=== PATIENT | male | born 1945 | race Caucasian/White ===

== ENCOUNTER → 2020-04-10 13:59 | Outpatient (BNVA) | payer OTHER, SELFPAY | PROVIDERS: PCP Family Medicine; Visit Provider Urology ==

== ENCOUNTER → 2020-10-09 15:06 | Outpatient (BNVA) | payer OTHER, SELFPAY | PROVIDERS: PCP Internal Medicine; Visit Provider Urology ==

== ENCOUNTER → 2021-04-16 11:58 | Outpatient (BNVA) | payer OTHER, SELFPAY | PROVIDERS: PCP Internal Medicine; Visit Provider Urology ==

== ENCOUNTER → 2021-10-15 11:30 | Outpatient (BNVA) | payer OTHER, SELFPAY | PROVIDERS: PCP Internal Medicine; Visit Provider Urology | DX: R97.20 Elevated prostate specific antigen [PSA] (principal); N40.1 Benign prostatic hyperplasia with lower urinary tract symptoms | CPT/HCPCS: 51798 ==

== ENCOUNTER → 2022-04-18 09:03 | Outpatient (BNVA) | payer OTHER, SELFPAY | PROVIDERS: PCP Internal Medicine; Visit Provider Urology | DX: Z13.89 Encounter for screening for other disorder (principal) ==

== ENCOUNTER 2022-10-17 15:08 | Outpatient (AMB) | payer OTHER, SELFPAY ==
--- NOTE | 2022-10-17 15:37 | A.OFFVIS_ITS ---
Intake Intake Visit Reasons: psa follow up Intake Note: Patient is present for Telephone Urology Med: Dutasteride, Tamsulosin Antibiotic Allergy: Cipro Blood Thinner:None [facility] Allergies ciprofloxacin [Cipro] Allergy (Unknown, Verified 10/17/22 15:38) unknown Latex Allergy (Unknown, Uncoded 10/17/22 15:38) unknown Medication List - Last Reconciled 10/17/22 by Buzz Hoang MD dutasteride 0.5 mg PO DAILY 90 days losartan 50 mg PO DAILY lovastatin 10 mg PO DAILY tamsulosin 0.4 mg PO BEDTIME 30 days HPI HPI Comments History of Present Illness Details Xenia GARCIA is a very pleasant male. He is a patient of Dr Phelps. He is seen today for the following urologic conditions. - lower urinary tract symptoms Telemedicine Evaluation 15 min Consultation [facility] Jarad Video attempted Continue slow fall in PSA Effective urinary performance Six month follow-up PVR Lower Urinary Tract Symptoms: Continue therapy on dutasteride with tamsulosin Current visit is for further evaluation of lower urinary tract symptoms, predominate obstructive symptoms - had urinary retention with catheter placed at [facility]. Subsequently seen by a local urologist. Recommendation for prostate procedure. - [place] [facility] [place] 02[place]01 - 140 g prostate, 6 mm area of suspicion low probability target Current treatment includes medication - dutasteride, with tamsulosin and he likes saw [place] Prostate Symptom Score 8/19 , Moderate (9-19), Bother 4. Symptoms include / , incomplete emptying, weak stream, and are progressing. Investigations - prostate biopsy 05/03 90 g, negative PSA 11/01 15, 01/01 6.3, 03/03 3.4, 09/02 3.9, 04/05 4.5, 08/03 3.5, 10/03 4.3, 04/06 3.5 23%, 09/04 4.2, 04/07 5.4, 09/05 4.0 Associated conditions - none Treatment plan continue with current medications [facility] Medical History Benign prostatic hyperplasia with lower urinary tract symptoms Elevated PSA Feeling of incomplete bladder emptying Hyperlipidemia Weak urinary stream Surgical History History of prostate biopsy Review of Systems Const All systems reviewed & are unremarkable except as noted in HPI and below Reports no additional complaints Resp Reports no additional complaints GI Reports no additional complaints Reports as per HPI Musc Reports no additional complaints Physical Exam Telemedicine evaluation Appropriate responses Regular breathing rate and rhythm HEENT Head: Yes normal to inspection Ears: hearing grossly normal bilaterally Eyes General: appearance normal, both eyes and all related structures Neck Neck: Yes normal visual inspection Chest Chest palpation & inspection: normal inspection of the chest Resp Effort & Inspection: normal respiratory effort and able to speak in complete sentences Assessment & Plan Assessment & Plan (1) Elevated PSA: Code(s): R97.20 - Elevated prostate specific antigen [PSA] (2) BPH loc w urin obs/LUTS: Code(s): N40.1 - Benign prostatic hyperplasia with lower urinary tract symptoms Plan Six month follow-up Orders: Orders PSA,Total (Free>4and<10) 6 Months N40.1 - Benign prostatic hyperplasia with lower urinary tract symptoms Patient Instructions: Imaging studies, laboratory and physical exam results were discussed and reviewed in detail. No major barriers to patient understanding were identified. An opportunity to ask questions regarding the treatment plan was provided. All questions were answered. The patient expressed understanding and agreement with the above treatment plan. The patient is aware they should contact our office by phone for worsening of their current condition or the appearance of new urologic symptoms. Compliance is encouraged with any medications and followup testing that is ordered. It is a privilege to participate in the urologic care of your patient. If you have any questions or concerns regarding treatment for the above conditions, or other urologic issues, please do not hesitate to contact me. The office telephone contact is [phone]. This note is constructed using voice recognition software. While every effort has been made to ensure accuracy financial representative errors may have been included. Yours sincerely, Dr Buzz Hoang MD, [employer] [facility] - Urology Providers of Expert, Compassionate Care for the Genitourinary System Telehealth Telehealth Location of provider rendering services: practice address Location of patient: address on file Patient Identification confirmed using: Name, : Yes Telehealth method: video Patient verbally consented to treatment: Yes Patient verbally consented to billing insurance company: Yes Patient informed of any privacy concerns related to visit: Yes Coding Level of Care Code Tele Est Pt Level 3 (21214) Diagnoses Elevated PSA R97.20 BPH loc w urin obs/LUTS N40.1
== END 2022-10-17 16:05 | disposition home or self-care (01) ==
LOC: HO.HUSH 15:08
PROVIDERS: PCP Internal Medicine; Visit Provider Urology
DX: R97.20 Elevated prostate specific antigen [PSA] (principal); N40.1 Benign prostatic hyperplasia with lower urinary tract symptoms
CPT/HCPCS: 99213

== ENCOUNTER → 2022-10-17 15:08 | Outpatient (BNVA) | payer OTHER, SELFPAY | PROVIDERS: PCP Internal Medicine; Visit Provider Urology ==

== ENCOUNTER 2023-04-22 10:47 | Outpatient (AMB) | payer OTHER, SELFPAY ==
--- NOTE | 2023-04-22 10:50 | A.OFFVIS_ITS ---
Intake Intake Visit Reasons: 6M PSA/PVR(set) Intake Note: Patient is Present for Follow Up PSA/PVR Urology Medication: Dutasteride (Previously on Tamsulosin stopped in January Antibiotic Allergies: Cipro Blood Thinners: None PVR: 46 Patient states that he had stopped Tamsulosin in January due to dizziness Currently on dutasteride and is taking a natural supplement that has been effective, patient wants to discuss options just to be on natural supplement Allergies ciprofloxacin [Cipro] Allergy (Unknown, Verified 04/22/23 11:03) unknown Latex Allergy (Unknown, Uncoded 04/22/23 11:03) unknown Medication List - Last Reconciled 04/22/23 by Buzz Hoang MD dutasteride 0.5 mg PO DAILY 90 days losartan 50 mg PO DAILY lovastatin 10 mg PO DAILY HPI HPI Comments History of Present Illness Details Xenia GARCIA is a very pleasant male. He is a patient of Dr Phelps. He is seen today for the following urologic conditions. - lower urinary tract symptoms Six month follow-up PVR 50 cc Had some blood pressure issues and has stopped tamsulosin Continue dutasteride Would recommend repeat MRI in 6 months for his single core question of prostate cancer Lower Urinary Tract Symptoms: Continue therapy on dutasteride with tamsulosin Current visit is for further evaluation of lower urinary tract symptoms, predominate obstructive symptoms - had urinary retention with catheter placed at [facility]. Subsequently seen by a local urologist. Recommendation for prostate procedure. - has seen urologist at [facility] [place]. MRI 02/01 - 140 g prostate, 6 mm area of suspicion low probability target Current treatment includes medication - dutasteride, with tamsulosin and he likes saw [place] Prostate Symptom Score 8/ , Moderate (9-19), Bother 4. Symptoms include / , incomplete emptying, weak stream, and are progressing. Investigations - prostate biopsy 05/03 90 g, single core HALEY PSA 11/01 15, 01/01 6.3, 03/03 3.4, 09/02 3.9, 04/05 4.5, 08/03 3.5, 10/03 4.3, 04/06 3.5 23%, 09/04 4.2, 04/07 5.4, 09/05 4.0, 04/08 5.5 18% Associated conditions - none Treatment plan continue with current medications [facility] Medical History Benign prostatic hyperplasia with lower urinary tract symptoms Elevated PSA Feeling of incomplete bladder emptying Hyperlipidemia Weak urinary stream Surgical History History of prostate biopsy Review of Systems Const Denies chills and Denies fever(s) Card Reports no additional complaints and Denies syncope Resp Denies cough GI Denies abdominal pain and Denies heartburn Reports as per HPI and Denies change in libido Neuro Denies syncope Psych Denies change in libido Endo Denies change in libido Physical Exam Const General: cooperative, healthy appearing, comfortable and no acute distress Orientation/consciousness: patient oriented x3 HEENT Face and sinus: Yes normal facial exam Mouth: moist mucous membranes Neck Neck: Yes normal visual inspection, Yes full ROM and Yes trachea midline Chest Chest palpation & inspection: normal inspection of the chest Resp Effort & Inspection: normal respiratory effort, able to speak in complete sentences and no respiratory distress GI Inspection: Yes normal to inspection Back/Spine/Pelvis Cervical Spine: normal cervical lordosis Thoracic/Lumbar Spine: thoracic and lumbar spine normal to inspection Skin General skin exam: no rashes or lesions noted Neuro General: patient oriented x3, gait normal, tone normal and moves all extremities Extrem General: Yes normal to inspection and Yes capillary refill normal Office Procedures Post Void Residual Post Residual Void Post Void Residual (PVR): 46 [id number] Void Residual by ultrasound Assessment & Plan Assessment & Plan (1) Prostate cancer: Code(s): C61 - Malignant neoplasm of prostate Plan Six-month follow-up MRI with lab work Orders: Orders AMB Post Void Residual by ultrasound Today N40.1 - Benign prostatic hyperplasia with lower urinary tract symptoms Prostate Specific Antigen 6 Months C61 - Malignant neoplasm of prostate Blood Urea Nitrogen 6 Months C61 - Malignant neoplasm of prostate MR pelvis wo/w con 6 Months C61 - Malignant neoplasm of prostate Creatinine 6 Months C61 - Malignant neoplasm of prostate Patient Instructions: Imaging studies, laboratory and physical exam results were discussed and reviewed in detail. No major barriers to patient understanding were identified. An opportunity to ask questions regarding the treatment plan was provided. All questions were answered. The patient expressed understanding and agreement with the above treatment plan. The patient is aware they should contact our office by phone for worsening of their current condition or the appearance of new urologic symptoms. Compliance is encouraged with any medications and followup testing that is ordered. It is a privilege to participate in the urologic care of your patient. If you have any questions or concerns regarding treatment for the above conditions, or other urologic issues, please do not hesitate to contact me. The office telephone contact is [phone]. This note is constructed using voice recognition software. While every effort has been made to ensure accuracy drilling assistant errors may have been included. Yours sincerely, Dr Buzz Hoang MD, [employer] [facility] - Urology Providers of Expert, Compassionate Care for the Genitourinary System Coding Level of Care Code Est Pt Level 3 (14965) Diagnoses Prostate cancer C61 CPT Codes Post Residual Void - PVR CPT Code: 64329-Jaiz Void Residual by ultrasound ([id number])
== END 2023-04-22 11:36 | disposition home or self-care (01) ==
PROVIDERS: PCP Internal Medicine; Visit Provider Urology
DX: C61 Malignant neoplasm of prostate (principal)
CPT/HCPCS: 99213

== ENCOUNTER → 2023-04-22 10:47 | Outpatient (BNVA) | payer OTHER, SELFPAY | PROVIDERS: PCP Internal Medicine; Visit Provider Urology | DX: C61 Malignant neoplasm of prostate (principal) | CPT/HCPCS: 51798 ==

== ENCOUNTER 2023-10-27 08:13 | Outpatient (AMB) | payer OTHER, SELFPAY ==
--- NOTE | 2023-10-27 08:13 | MHC.OFFVIS ---
Intake Visit Reasons: 6M Follow Up-MRI/PSA(SET) Intake Note: Patient presents to the office today as a telehealth visit for a 6 month follow up MRI/PSA Urology Med: Dutasteride, Antibiotic Allergy: Cipro Blood Thinner:None Allergies ciprofloxacin [Cipro] Allergy (Unknown, Verified 10/27/23 08:13) unknown Latex Allergy (Unknown, Uncoded 10/27/23 08:13) unknown Medication List - Last Reconciled 10/27/23 by Buzz Hoang MD dutasteride 0.5 mg PO DAILY 90 days losartan 50 mg PO DAILY lovastatin 10 mg PO DAILY HPI Comments Details: Xenia GARCIA is a very pleasant male. He is a patient of Dr Phelps. He is seen today for the following urologic conditions. - lower urinary tract symptoms - suspicious prostate MRI - single core HALEY Telemedicine Evaluation 15 min Consultation [facility] [facility] Jarad Video Continue dutasteride - cut back to M, W, F [facility] - 10/06 MRI 130gm, no suspicious lesions Continue surveillance Lower Urinary Tract Symptoms: Continue therapy on dutasteride with tamsulosin Current visit is for further evaluation of lower urinary tract symptoms, predominate obstructive symptoms - had urinary retention with catheter placed at [facility]. Subsequently seen by a local urologist. Recommendation for prostate procedure. - has seen urologist at [facility] [place]. MRI 02/01 - 140 g prostate, 6 mm area of suspicion low probability target Current treatment includes medication - dutasteride, with tamsulosin and he likes saw [place] Prostate Symptom Score 8/19 , Moderate (9-19), Bother 4. Symptoms include 8/ , incomplete emptying, weak stream, and are progressing. Investigations - prostate biopsy 05/03 90 g, single core HALEY PSA 11/01 15, 01/01 6.3, 03/03 3.4, 09/02 3.9, 04/05 4.5, 08/03 3.5, 10/03 4.3, 04/06 3.5 23%, 09/04 4.2, 04/07 5.4, 09/05 4.0, 04/08 5.5 18%, 09/06 6.3 Associated conditions - none Treatment plan continue with current medications [facility] Medical History Hyperlipidemia Weak urinary stream Elevated PSA Benign prostatic hyperplasia with lower urinary tract symptoms Feeling of incomplete bladder emptying Surgical History History of prostate biopsy Review of Systems Const All systems reviewed & are unremarkable except as noted in HPI and below Reports no additional complaints Resp Reports no additional complaints GI Reports no additional complaints Reports as per HPI Musc Reports no additional complaints Physical Exam Telemedicine evaluation Appropriate responses Regular breathing rate and rhythm HEENT Head: Yes normal to inspection Ears: hearing grossly normal bilaterally Eyes General: appearance normal, both eyes and all related structures Neck Neck: Yes normal visual inspection Chest Chest palpation & inspection: normal inspection of the chest Resp Effort & Inspection: normal respiratory effort and able to speak in complete sentences Telehealth Telehealth Telehealth Platform: [employer] Location of provider rendering services: practice address Location of patient: address on file Patient Identification confirmed using: Name, : Yes Telehealth method: video Patient verbally consented to treatment: Yes Patient verbally consented to billing insurance company: Yes Patient informed of any privacy concerns related to visit: Yes Minutes spent on Phone/Video with Pt.: 15 Assessment & Plan Assessment & Plan (1) Prostate cancer: Code(s): C61 - Malignant neoplasm of prostate Category: Medical (2) Elevated PSA: Code(s): R97.20 - Elevated prostate specific antigen [PSA] Category: Medical (3) BPH loc w urin obs/LUTS: Code(s): N40.1 - Benign prostatic hyperplasia with lower urinary tract symptoms Category: Medical Plan Six-month follow-up Orders: Orders PSA,Total (Free>4and<10) 6 Months C61 - Malignant neoplasm of prostate Patient Instructions: Imaging studies, laboratory and physical exam results were discussed and reviewed in detail. No major barriers to patient understanding were identified. An opportunity to ask questions regarding the treatment plan was provided. All questions were answered. The patient expressed understanding and agreement with the above treatment plan. The patient is aware they should contact our office by phone for worsening of their current condition or the appearance of new urologic symptoms. Compliance is encouraged with any medications and followup testing that is ordered. It is a privilege to participate in the urologic care of your patient. If you have any questions or concerns regarding treatment for the above conditions, or other urologic issues, please do not hesitate to contact me. The office telephone contact is [phone]. This note is constructed using voice recognition software. While every effort has been made to ensure accuracy branch customer service representative errors may have been included. Yours sincerely, Dr Buzz Hoang MD, [employer] [facility] - Urology Providers of Expert, Compassionate Care for the Genitourinary System Coding Level of Care Code Tele Est Pt Level 3 (83114) Diagnoses Prostate cancer C61 Elevated PSA R97.20 BPH loc w urin obs/LUTS N40.1
== END 2023-10-27 09:27 | disposition home or self-care (01) ==
LOC: HO.HUSH 08:13
PROVIDERS: PCP Internal Medicine; Visit Provider Urology
DX: C61 Malignant neoplasm of prostate (principal); R97.20 Elevated prostate specific antigen [PSA]; N40.1 Benign prostatic hyperplasia with lower urinary tract symptoms
CPT/HCPCS: 99213

== ENCOUNTER → 2023-10-27 08:13 | Outpatient (BNVA) | payer OTHER, SELFPAY | PROVIDERS: PCP Internal Medicine; Visit Provider Urology ==

== ENCOUNTER 2024-04-28 10:39 | Outpatient (AMB) | payer OTHER, SELFPAY ==
--- NOTE | 2024-04-28 10:52 | A.OFFVIS_ITS ---
Intake Visit Reasons: 6M PSA/PVR(set) Elevated Intake Note: Patient is present for 6M PSA/PVR Urology Medication:DUTASTERIDE Antibiotic Allergy:CIPROFLOXACIN Blood Thinner:NONE Todays PVR:48ML[employer] Asset Analyst Required: No Allergies ciprofloxacin [Cipro] Allergy (Unknown, Verified 04/28/24 10:53) unknown Latex Allergy (Unknown, Uncoded 04/28/24 10:53) unknown HPI Comments Details: Xenia GARCIA is a very pleasant male. He is a patient of Dr Phelps. He is seen today for the following urologic conditions. - lower urinary tract symptoms - suspicious prostate MRI - single core HALEY Six-month follow-up PVR 50 cc Slight rise in PSA secondary to reduced dose of dutasteride Continue dutasteride - M, W, F Imaging - 10/06 MRI 130gm, no suspicious lesions Continue surveillance Lower Urinary Tract Symptoms: Continue therapy on dutasteride with tamsulosin Current visit is for further evaluation of lower urinary tract symptoms, predominate obstructive symptoms - had urinary retention with catheter placed at [facility]. Subsequently seen by a local urologist. Recommendation for prostate procedure. - has seen urologist at [facility] [place]. MRI 02/01 - 140 g prostate, 6 mm area of suspicion low probability target Current treatment includes medication - dutasteride, with tamsulosin and he likes saw [place] Prostate Symptom Score 8/ , Moderate (9-19), Bother 4. Symptoms include / , incomplete emptying, weak stream, and are progressing. Investigations - prostate biopsy 05/03 90 g, single core HALEY PSA 11/01 15, 01/01 6.3, 03/03 3.4, 09/02 3.9, 04/05 4.5, 08/03 3.5, 10/03 4.3, 04/06 3.5 23%, 09/04 4.2, 04/07 5.4, 09/05 4.0, 04/08 5.5 18%, 09/06 6.3, 05/10 7.7 17% Associated conditions - none Treatment plan continue with current medications [facility] Medical History Hyperlipidemia Weak urinary stream Elevated PSA Benign prostatic hyperplasia with lower urinary tract symptoms Feeling of incomplete bladder emptying Surgical History History of prostate biopsy Review of Systems Const Denies chills and Denies fever(s) Card Reports no additional complaints and Denies syncope Resp Denies cough GI Denies abdominal pain and Denies heartburn Reports as per HPI and Denies change in libido Neuro Denies syncope Psych Denies change in libido Endo Denies change in libido Physical Exam Const General: cooperative, healthy appearing, comfortable and no acute distress Orientation/consciousness: patient oriented x3 HEENT Face and sinus: Yes normal facial exam Mouth: moist mucous membranes Neck Neck: Yes normal visual inspection, Yes full ROM and Yes trachea midline Chest Chest palpation & inspection: normal inspection of the chest Resp Effort & Inspection: normal respiratory effort, able to speak in complete sentences and no respiratory distress GI Inspection: Yes normal to inspection Back/Spine/Pelvis Cervical Spine: normal cervical lordosis Thoracic/Lumbar Spine: thoracic and lumbar spine normal to inspection Skin General skin exam: no rashes or lesions noted Neuro General: patient oriented x3, gait normal, tone normal and moves all extremities Extrem General: Yes normal to inspection and Yes capillary refill normal Office Procedures Post Void Residual Post Residual Void Post Void Residual (PVR): 48 [id number] Void Residual by ultrasound Results AMB Urinalysis, Automated UA Leukoctes 0 Yaya/uL Last Edit by FRANCISCO John on 04/28/24 12:03 UA Nitrite Negative Last Edit by FRANCISCO John on 04/28/24 12:03 UA Urobilinogen 3.5 mg/dL Last Edit by FRANCISCO John on 04/28/24 12:0 3 UA Protein 15 mg/dL Last Edit by FRANCISCO John on 04/28/24 12:03 UA pH 7.0 Last Edit by FRANCISCO John on 04/28/24 12:03 UA Blood 0 Earl/uL Last Edit by FRANCISCO John on 04/28/24 12:03 UA Specific [place] 1.010 Last Edit by FRANCISCO John on 04/28/24 12: 03 UA Ketone Negative Last Edit by FRANCISCO John on 04/28/24 12:03 UA Bilirubin 0 mg/dL Last Edit by FRANCISCO John on 04/28/24 12:03 UA Glucose 0 mg/dL Last Edit by Juventino Garrison [facility] on 04/28/24 12:03 Assessment & Plan Assessment & Plan (1) Elevated PSA: Code(s): R97.20 - Elevated prostate specific antigen [PSA] Category: Medical (2) BPH loc w urin obs/LUTS: Code(s): N40.1 - Benign prostatic hyperplasia with lower urinary tract symptoms Category: Medical (3) Prostate cancer: Code(s): C61 - Malignant neoplasm of prostate Category: Medical Plan Six-month follow-up PSA tele Orders: Orders AMB Urinalysis Automated Today Z13.9 - Encounter for screening, unspecified PSA,Total (Free>4and<10) 6 Months R97.20 - Elevated prostate specific antigen [PSA] Patient Instructions: This note is constructed using voice recognition software. While every effort has been made to ensure accuracy strategic sourcing specialist errors may have been included. Imaging studies, laboratory and physical exam results were discussed and reviewed in detail. No major barriers to patient understanding were identified. An opportunity to ask questions regarding the treatment plan was provided. All questions were answered. The patient expressed understanding and agreement with the above treatment plan. The patient is aware they should contact our office by phone for worsening of their current condition or the appearance of new urologic symptoms. Compliance is encouraged with any medications and followup testing that is ordered. It is a privilege to participate in the urologic care of your patient. If you have any questions or concerns regarding treatment for the above conditions, or other urologic issues, please do not hesitate to contact me. The office telephone contact is [phone]. Sincerely, Dr Buzz Hoang MD, [employer] [facility] - Urology Compassionate Specialist Care for the Genitourinary System Coding Level of Care Code Est Pt Level 3 (55672) Diagnoses Elevated PSA R97.20 BPH loc w urin obs/LUTS N40.1 Prostate cancer C61 CPT Codes Post Residual Void - PVR CPT Code: 83304-Moav Void Residual by ultrasound ([id number])
== END 2024-04-28 11:21 | disposition home or self-care (01) ==
PROVIDERS: PCP Internal Medicine; Visit Provider Urology
DX: R97.20 Elevated prostate specific antigen [PSA] (principal); N40.1 Benign prostatic hyperplasia with lower urinary tract symptoms; C61 Malignant neoplasm of prostate; Z13.9 Encounter for screening, unspecified
CPT/HCPCS: 99213

== ENCOUNTER → 2024-04-28 10:39 | Outpatient (BNVA) | payer OTHER, SELFPAY | PROVIDERS: PCP Internal Medicine; Visit Provider Urology | DX: R97.20 Elevated prostate specific antigen [PSA] (principal); N40.1 Benign prostatic hyperplasia with lower urinary tract symptoms; N13.8 Other obstructive and reflux uropathy; C61 Malignant neoplasm of prostate | CPT/HCPCS: 51798; 81003 ==

== ENCOUNTER 2024-10-26 08:34 | Outpatient (AMB) | payer OTHER, SELFPAY ==
--- NOTE | 2024-10-26 08:34 | A.OFFVIS_ITS ---
Intake Visit Reasons: 6m follow up/ PSA Intake Note: Patient is present for 6M follow up Urology Medication:DUTASTERIDE Antibiotic Allergy:CIPROFLOXACIN Blood Thinner:NONE Todays PVR:48ML'S Clinical Psychologist Licensed Required: No Accompanied by: Self / Same As Patient Allergies ciprofloxacin (Cipro) Allergy (Unknown, Verified 10/26/24 08:36) unknown Latex Allergy (Unknown, Uncoded 04/28/24 10:53) unknown HPI Comments Details: Xenia GARCIA is a very pleasant male. He is a patient of Dr Alberto. He is seen today for the following urologic conditions. - lower urinary tract symptoms - suspicious prostate MRI - single core HALEY Telemedicine Evaluation 15 min Consultation D[employer] Jarad Video Reassurance provided Maintain six-month surveillance Continue Dutasteride - M, W, F Imaging - 10/06 MRI 130gm, no suspicious lesions PSA 10/07 7.2 Lower Urinary Tract Symptoms: Continue therapy on dutasteride with tamsulosin Current visit is for further evaluation of lower urinary tract symptoms, predominate obstructive symptoms - had urinary retention with catheter placed at [facility]. Subsequently seen by a local urologist. Recommendation for prostate procedure. - has seen urologist at [facility] [place]. MRI 02/01 - 140 g prostate, 6 mm area of suspicion low probability target Current treatment includes medication - dutasteride, with tamsulosin and he likes [place] Prostate Symptom Score 8/ , Moderate (9-19), Bother 4. Symptoms include / , incomplete emptying, weak stream, and are progr essing. Investigations - prostate biopsy 05/03 90 g, single core HALEY PSA 11/01 15, 01/01 6.3, 03/03 3.4, 09/02 3.9, 04/05 4.5, 08/03 3.5, 10/03 4.3, 04/06 3.5 23%, 09/04 4.2, 04/07 5.4, 09/05 4.0, 04/08 5.5 18%, 09/06 6.3, 05/10 7.7 17% Associated conditions - none Treatment plan continue with current medications [facility] Medical History Hyperlipidemia Weak urinary stream Elevated PSA Benign prostatic hyperplasia with lower urinary tract symptoms Feeling of incomplete bladder emptying Surgical History History of prostate biopsy Review of Systems Const All systems reviewed & are unremarkable except as noted in HPI and below Reports no additional complaints Resp Reports no additional complaints GI Reports no additional complaints Reports as per HPI Musc Reports no additional complaints Physical Exam Telemedicine evaluation Appropriate responses Regular breathing rate and rhythm HEENT Head: Yes normal to inspection Ears: hearing grossly normal bilaterally Eyes General: appearance normal, both eyes and all related structures Neck Neck: Yes normal visual inspection Chest Chest palpation & inspection: normal inspection of the chest Resp Effort & Inspection: normal respiratory effort and able to speak in complete sentences Telehealth Telehealth Telehealth Platform: [employer] Location of provider rendering services: practice address Location of patient: address on file Patient Identification confirmed using: Name, : Yes Telehealth method: voice only Patient verbally consented to treatment: Yes Patient verbally consented to billing insurance company: Yes Patient informed of any privacy concerns related to visit: Yes Minutes spent on Phone/Video with Pt.: 15 Assessment & Plan Assessment & Plan (1) Prostate cancer: Code(s): C61 - Malignant neoplasm of prostate Category: Medical Plan Six-month follow-up PSA OFFICE Orders: Orders PSA,Total (Free>4and<10) 6 Months C61 - Malignant neoplasm of prostate Patient Instructions: This note is constructed using voice recognition software. While every effort has been made to ensure accuracy supervisor furnace process errors may have been included. Imaging studies, laboratory and physical exam results were discussed and reviewed in detail. No major barriers to patient understanding were identified. An opportunity to ask questions regarding the treatment plan was provided. All questions were answered. The patient expressed understanding and agreement with the above treatment plan. The patient is aware they should contact our office by phone for worsening of their current condition or the appearance of new urologic symptoms. Compliance is encouraged with any medications and followup testing that is ordered. It is a privilege to participate in the urologic care of your patient. If you have any questions or concerns regarding treatment for the above conditions, or other urologic issues, please do not hesitate to contact me. The office telephone contact is [phone]. Sincerely, Dr Buzz Hoang MD, [facility] - Urology Compassionate Specialist Care for the Genitourinary System Coding Level of Care Code Tele Est Pt Level 3 (10042) Complex EM visit Add On G2211 Diagnoses Prostate cancer C61
--- OUTSIDE RECORDS SUMMARY | 2024-10-26 08:46 | XMS_ITS | Encounter Summary ---
Author Organization [facility] Address [address] [place] [phone] Phone Care Team Providers Care Journeyman Operator Assistant Name Role Phone Unknown, Unknown MD Unavailable Unavailable Julieth Phelps MD Primary Care Provider Encounter Details Date Type Department Care Team ([facility] st Contact Info) Description 03/21/2024 Procedure Pass [facility] Endoscopy Admitting Dept Virtual Department [address] [place] [id number] Social History Tobacco Use Types Packs/Day Years Used Date Smoking Tobacco: Never Alcohol Use Standard Drinks/Week Comments Never 0 (1 standard drink = 0.6 oz pur e alcohol) Education Answer Date Recorded Are you interested in more education? Not on raphael e 07/11/2022 Are you concerned about learning? Not on file 07/11/2022 No 07/11/2022 No 07/11/2022 Digital Access Answer Date Recorded No 08/11/2022 No 08/11/2022 No 08/11/2022 Reliable internet access at home? Not on file 08/11/2022 Device with a working camera? Not on file Sex and Gender Information Value Date Recorded Sex Assigned at Male 09/19/2018 5:47 PM EDT Legal Sex Male 8:02 PM EDT Gender Identity Male 09/19/2018 5:47 PM EDT Sexual Orientation Straight 09/19/2018 5: 47 PM EDT documented as of this encounter Plan of Treatment Not on file documented as of this encounter Visit Diagnoses Not on filedocumented in this encounter Care Teams Journeyman Operator Assistant Relationship Specialty Start Date End Date Julieth Phelps MD [address] [place] [address] [place] [address] [email or web address] PCP - General Internal Medicine 08/21/20 Unknown, Unknown, 09/30/18 documented as of this encounter Additional Source Comments The information contained in this document represents components of the legal health record. It is not the complete legal health record.[facility]
== END 2024-10-26 09:10 | disposition home or self-care (01) ==
LOC: HO.HUSH 08:34
PROVIDERS: PCP Family Medicine; Visit Provider Urology
DX: C61 Malignant neoplasm of prostate (principal)
CPT/HCPCS: 98013